=== PATIENT | female | born 1975 | race Caucasian/White ===

== ENCOUNTER → 2018-07-16 | Outpatient (CLI) | payer OTHER ==
[2018-07-16 13:10] LABS: BASO % 0.6 % (0.0-1.0); EOS # 0.1 10^3/uL (0.0-0.50); EOS % 1.9 % (0.0-3.0); HEMATOCRIT 39.6 % (36.0-47.0); IMMATURE GRANULOCYTE % 0.3 % (0-3.0); LYMPH # 1.9 10^3/uL (1.5-4.5); MEAN CORPUSCULAR HEMOGLOBIN 30.4 pg (27.0-33.0); MEAN CORPUSCULAR HGB CONC 32.8 g/dl (32.0-36.5); MEAN CORPUSCULAR VOLUME 92.5 fl (80.0-96.0); MONO # 0.6 10^3/uL (0.0-0.8); MONO % 8.1 % (0.0-5.0); NEUTROPHILS # 4.1 10^3/uL (1.8-7.7); NEUTROPHILS % 61.1 % (36.0-66.0); PLATELET COUNT, AUTOMATED 218 10^3/uL (150-450); RED BLOOD COUNT 4.28 10^6/uL (4.00-5.40); RED CELL DISTRIBUTION WIDTH 12.7 % (11.5-14.5); WHITE BLOOD COUNT 6.8 10^3/uL (4.0-10.0)
[2018-07-16 15:27] LABS: FREE T4 0.96 NG/DL (0.76-1.46)
[2018-07-17 15:01] LABS: PROLACTIN 18.9 NG/ML
== END ==
LOC: M WUC 10:27
DX: N92.1 Excessive and frequent menstruation with irregular cycle (principal)
CPT/HCPCS: 84146

== ENCOUNTER 2018-08-27 10:02 | Day surgery (SDC) | payer OTHER ==
[~2018-08-27 10:02] MED LIST: LR 1,000 ML IV
[2018-08-27] MEDS ORDERED: fentaNYL 100 MCG/2 ML INJECTION (J3010) As Ordered (12:05)
[2018-08-27] MEDS ORDERED: dexameTHASONE 4 MG/ML 1ML VIAL (J1100) As Ordered (12:05)
[2018-08-27] MEDS ORDERED: PROPOFOL 200 MG/20 ML VIAL As Ordered (12:06)
[2018-08-27] MEDS ORDERED: LIDOCAINE 2% INJ 100 MG/5 ML SDV (FOR ANES.) As Ordered (12:06)
[2018-08-27] MEDS ORDERED: KETOROLAC 60 MG/2 ML VIAL (J1885) As Ordered (12:06)
[2018-08-27] MEDS ORDERED: ONDANSETRON 4MG/2ML VIAL (J2405) As Ordered (12:06)
[2018-08-27] MEDS ORDERED: MIDAZOLAM INJ 2 MG/2 ML VIAL (J2250) As Ordered (12:06)
[2018-08-27] MEDS ORDERED: METOCLOPRAMIDE INJ 10MG/2ML VIAL (J2765) As Ordered (12:06)
[2018-08-27] MEDS ORDERED: DESFLURANE 240 ML INHALANT As Ordered (12:22)
[2018-08-27] MEDS ORDERED: ONDANSETRON 4MG/2ML VIAL (J2405) IV (13:00)
[2018-08-27] MEDS ORDERED: IBUPROFEN 600 MG TAB PO (13:00)
[2018-08-27] MEDS ORDERED: fentaNYL 100 MCG/2 ML INJECTION (J3010) IV (13:00)
[2018-08-27] MEDS ORDERED: MEPERIDINE INJ 25 MG/ML VIAL (J2175) IV (13:00)
[2018-08-27] MEDS ORDERED: NORCO, ANEXSIA 5/325MG TABLET (HYDROcodone/ACETAMINOPHEN) PO (13:00)
[2018-08-27] MEDS ORDERED: KETOROLAC 30 MG/ML VIAL (J1885) IV (13:00)
[2018-08-27] MEDS ORDERED: PERCOCET 5MG/325MG TAB PO (13:00)
[2018-08-27] MEDS ORDERED: LR 1,000 ML IV ×2 (13:00)
== END 2018-08-27 14:00 | disposition home or self-care (01) ==
LOC: M SDC 10:02
DX: N93.9 Abnormal uterine and vaginal bleeding, unspecified (principal); R10.2 Pelvic and perineal pain; G43.909 Migraine, unspecified, not intractable, without status migrainosus; Z98.51 Tubal ligation status
CPT/HCPCS: 58563

== ENCOUNTER → 2021-03-30 | Outpatient (REF) | payer OTHER ==
[~2021-03-30] MED LIST changes: -LR 1,000 ML IV; +MULTCAP PO
== END ==
LOC: M LAB REF 17:23
PROVIDERS: ATTEND Dermatology
DX: R21 Rash and other nonspecific skin eruption (principal)

== ENCOUNTER → 2021-03-30 | Outpatient (CLI) | payer OTHER | LOC: M LAB 10:46 | PROVIDERS: ATTEND Dermatology | DX: R21 Rash and other nonspecific skin eruption (principal) ==

== ENCOUNTER → 2021-07-12 | Outpatient (REF) | payer OTHER ==
[~2021-07-12] MED LIST changes: +[UNRECOGNIZED DRUG - OTHER] PO
[2021-07-12 17:16] LABS: HEMATOCRIT 40.2 % (36.0-47.0); HEMOGLOBIN 12.7 g/dl (12.0-15.5); MEAN CORPUSCULAR HEMOGLOBIN 30.3 pg (27.0-33.0); MEAN CORPUSCULAR HGB CONC 31.6 g/dl (32.0-36.5); MEAN CORPUSCULAR VOLUME 95.9 fl (80.0-96.0); PLATELET COUNT, AUTOMATED 227 10^3/uL (150-450); RED BLOOD COUNT 4.19 10^6/uL (4.00-5.40); WHITE BLOOD COUNT 5.8 10^3/uL (4.0-10.0)
[2021-07-12 17:26] LABS: ALBUMIN 3.8 GM/DL (3.2-5.2); ALT/SGPT 23 U/L (12-78); BILIRUBIN,TOTAL 0.3 MG/DL (0.2-1.0); BLOOD UREA NITROGEN 14 MG/DL (7-18); CALCIUM LEVEL 8.7 MG/DL (8.5-10.1); CARBON DIOXIDE LEVEL 27 MEQ/L (21-32); CHLORIDE LEVEL 108 MEQ/L (98-107); CREATININE FOR GFR 0.85 MG/DL (0.55-1.30); FREE T4 0.94 NG/DL (0.76-1.46); GLOMERULAR FILTRATION RATE > 60.0 (>58); GLUCOSE, FASTING 101 MG/DL (70-100); POTASSIUM SERUM 4.6 MEQ/L (3.5-5.1); SODIUM LEVEL 139 MEQ/L (136-145); TOTAL PROTEIN 6.8 GM/DL (6.4-8.2)
[2021-07-18 19:06] LABS: G6PD2 4.31 x10E6/uL (3.77-5.28)
== END ==
LOC: M LABDRAWC 16:26
PROVIDERS: ATTEND Dermatology
DX: L13.0 Dermatitis herpetiformis (principal)

== ENCOUNTER → 2021-09-03 | Outpatient (CLI) | payer OTHER | LOC: M LABSMTC 11:27 | PROVIDERS: ATTEND Anesthesiology | DX: Z11.52 Encounter for screening for COVID-19 (principal); Z20.822 Contact with and (suspected) exposure to COVID-19 ==

== ENCOUNTER 2021-09-07 10:56 | Day surgery (SDC) | payer OTHER ==
[~2021-09-07] VITALS: Ht 177.8 cm; Wt 87.1 kg
[~2021-09-07 10:56] MED LIST changes: +LIDOCAINE 2% 100MG/5ML SDV (FOR ANES.) As Ordered ONE; +NS 1,000 ML IV ONE; +fentaNYL 100 MCG/2 ML INJECTION (J3010) As Ordered ONE; +propofoL 500 MG/50 ML VIAL As Ordered ONE
--- OUTSIDE RECORDS SUMMARY | 2021-09-07 11:00 | CCD | Continuity of Care Document ---
Author Jaycee Delatorre Organization Unknown Address [address], [address] [place] [address] Phone [phone] Care Team Providers Care Nurses Director Name Role Phone Souleymane Purclel [phone] Problems Description No Information Available Social History Type Date Description Comments Sex Unknown ETOH Use 1/d Tobacco Use Start: Unknown Non Smoker Allergies, Adverse Reactions, Alerts Description No Known Drug Allergies Medications Active Medications SIG Qnty Indications Ordering Provide r Date Clenpiq 10-3.5-12mg-GM -GM/160ML S olution follow pre-procedure instructions. start day before procedure. (if not covered by insurance please fill gavilyte script). 320ml L13.0 Chencho Vásquez M.D. 08/01/2021 Gavilyte-N With Flavor Pack 420gm Solution Rec drink the liquid as per the pre-procedur e instructions. ( fill this script only if clenpiq is not covered by insurance). 4000ml L13.0 Chencho Vásquez M.D. 08/01/[address] take 4 tablets together as per bowel preparation instructions. 4tabs L13.0 Chencho Vásquez M.D. 08/01/2021 Women's Mul Vit W/Iron qd Unknown Vitex Louis 4tabs qd Unknown Betamethasone Dipropionate 0.05% O intment Unknown Immunizations Description No Information Available Vital Signs Date Vital Result Comment 08/01/2021 11:44am BP Systolic 132 mmHg BP Diastolic 76 mmHg Height 69 inches 5'9" Weight 192.00 lb BMI (Body Mass Index) 28.4 kg/m2 [place] Body Weight 145 lb Weight 87.091 kg BSA (Body Surface Area) 2.03 m2 Results Description No Information Available Procedures Description No Information Available Medical Devices Description No Information Available Encounters Description No Information Available Assessments Date Code Description Provider 08/01/2021 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 08/01/2021 K62.5 Hemorrhage of anus and rectum Parvez Vásquez M.D. 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 * Recommendations:* -- Educated patient on prior test results and all possible differential diagnoses. All questions answered. -- In view of clinical symptoms and dietary intolerance, patient is educated to continue avoidance of gluten for now ( eventhough the antibody testing was negative). -- Will schedule for diagnostic EGD and Screening colonoscopy. The procedures, indications, risks (bleeding, perforation, infection, hypotension, respiratory depression, allergy, need for endotracheal intubation, surgery, colostomy, cardiac arrest, even ), benefits, limitations (e.g., missing a lesion), and all other alternatives (including no intervention) were explained to the patient who understood and agreed for the procedures. -- Further management based on the above. -- Return to GI clinic 2 weeks post procedures. -- Follow up with PMD for routine medical care and other age appropriate health maintenance.. Functional Status Description No Information Available Mental Status Description No Information Available Referrals Refer to Reason for Referral Status Appt Date Chencho Vásquez M.D. COLO SCREEN/CELIAC CONSULT Schedule d 08/01/2021 [facility] [address], [address] [place] [address] [phone]
--- OUTSIDE RECORDS SUMMARY | 2021-09-07 11:00 | CCD | Continuity of Care Document ---
Author Author Jaycee OYUNG Organization Unknown Address [address] [place] [address] Phone [phone] Care Team Providers Care Car Unloader Helper Name Role Phone Sierra Russo AUTM [phone] Problems Active Problems Provider Date Hemorrhoids without complication Alexia Rogel WHNP Onset: 07/15/2012 Social History Type Date Description Comments Sex Unknown Tobacco Use Start: Unknown Never Smoked Cigarettes ETOH Use Occasionally consumes alcohol Recreational Drug Use Denies Drug Use Tobacco Use Start: Unknown Patient has never smoked Smoking Status Reviewed: 07/28/20 Patient has never smoked Seat Belt/Car Seat always uses seat belt Allergies and adverse reactions Active Allergies Criticality Reaction | Severity Comments Date NKDA Unable to assess criticality 06/13/2006 Gluten Unable to assess criticality 07/28/2020 Inactive Allergies shrimp Unable to assess criticality 06/20/2008 Medications Active Medications SIG Qnty Indications Ordering Provide r Date Ibuprofen 600mg Tablets take one tablet by mouth every 6 hours as needed for pain 60tabs Radha Young MD 08/26/2018 Multivitamins Caplets 1 PO q d 100caps Lesa Wilson, ZACHERY, CNM. 08/10/2010 Probiotic Daily Capsules Unknown Vitex Louis Unknown Immunizations Description No Information Available Vital Signs Date Vital Result Comment 08/07/2021 7:39am BP Systolic 148 mmHg BP Diastolic 98 mmHg Height 69.5 inches 5'9.50" Weight 192.00 lb BMI (Body Mass Index) 27.9 kg/m2 BSA (Body Surface Area) 2.04 m2 07/28/2020 9:09am BP Systolic 118 mmHg BP Diastolic 78 mmHg Height 69.50 inches 5'9.50" Weight 190.00 lb BMI (Body Mass Index) 27.7 kg/m2 BSA (Body Surface Area) 2.03 m2 Results Description No Information Available Procedures Description No Information Available Medical Devices Description No Information Available Encounters Description No Information Available Assessments Description No Information Available Plan of Treatment Future Appointment(s):* 07/26/2022 9:45 am - 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
--- OUTSIDE RECORDS SUMMARY | 2021-09-07 11:00 | CCD | Continuity of Care Document ---
Author Author Jaycee YOUNG Organization Unknown Address [address] [place] [address] Phone [phone] Care Team Providers Care Medical Research Associate Name Role Phone Sierra Russo AUTM [phone] Problems Active Problems Provider Date Hemorrhoids without complication Alexia Rogel WHNP Onset: 07/15/2012 Social History Type Date Description Comments Sex Unknown Tobacco Use Start: Unknown Never Smoked Cigarettes ETOH Use Occasionally consumes alcohol Recreational Drug Use Denies Drug Use Tobacco Use Start: Unknown Patient has never smoked Smoking Status Reviewed: 08/07/21 Patient has never smoked Seat Belt/Car Seat [...] m2 Results Description No Information Available Procedures Date Code Description Status 08/07/2021 67073 Preventive Visit Est 40-64 Yrs C ompleted Medical Devices Description No Information Available Encounters Type Date Location Provider Dx Diagnosis Office Visit 08/07/2021 9:45a [facility]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 Radha Young MD Z0 1.419 Encntr for director of business operations exam (general) (routine) w/o abn findings Z12.4 Encounter for screening for malignant neoplasm of cervix Z12.39 Encounter for oth screening for malignant neoplasm of breast Assessments Date Code Description Provider 08/07/2021 Z01.419 Encounter for gyneco logical examination (general) (routine) without abnormal findings Radha Young MD 08/07/2021 Z12.4 Encounter for screening for cinda gnant neoplasm of cervix Radha Young MD 08/07/2021 Z12.39 Encounter for other screening for malignant neoplasm of breast Radha Young MD Plan of Treatment Future Appointment(s):* 07/26/2022 9:45 am - 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
--- OUTSIDE RECORDS SUMMARY | 2021-09-07 11:00 | CCD ---
Author Author [facility] Organization [facility] Address Unknown Phone Unavailable Care Team Providers Care Oiler Bander Name Role Phone Lisandra Okeefe Unavailable PROBLEMS Type Condition ICD9-CM Code XOB54-XL Code Onset Dates Condition S tatus W/U Status Risk SNOMED Code Notes Problem Keratosis pilaris L85.8 Active confirmed 51 52762 Problem Melanocytic nevi of right lower limb, including hip D22.71 Active confirmed 789394925 Problem Melanocytic nevi of left lower limb, including hip D22.72 Active confirmed 719738569 Problem Melanocytic nevi of right upper limb, including shoulder D22.61 Active confirmed 471745580 Problem Melanocytic nevi of left upper limb, including shoulder D22.62 Active confirmed 734312077 Problem Acrochordon L91.8 Active confirmed 09249877 2 Problem Skin cancer screening Z12.83 Active confirmed 028307891 Problem Melanocytic nevus of skin D22.9 Active confirmed 209115489 Problem Lentigines L81.4 Active confirmed 194317433 Problem Melanocytic nevi of face D22.30 Active confirmed 488784674 Problem 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 Active confirmed 356243882 Problem Melanocytic nevi of trunk D22.5 Active confirmed 115908477 Problem Dermal nevus D23.9 Active confirmed 9667275 06 Problem Sanabria angioma D18.01 Active confirmed 58218 01 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 ; Lentigines L81.4 ; Melanocytic nevus of skin D22.9 ; Plantar wart of right foot B07.0 and Dermal nevus D23.9 IMMUNIZATIONS No Information SOCIAL HISTORY Sex Assigned At : Social History Observation Description Sex Assigned At Unknown Language: Question Answer Notes Languages spoken: Mauritian REASON FOR REFERRAL No Information VITAL SIGNS Weight 195.6 lbs Aug, Weight-kg 88.72 kg Aug, Height 69.5 in Aug, BMI 28.47 kg/m2 Aug, Blood pressure systolic 130 mm Hg Aug, Blood pressure diastolic 82 mm Hg Aug, MEDICATIONS Medication SIG (Take, Route, Frequency, Duration) Notes Start Da te End Date Status Probiotic - Orally Active Multi Vitamin/Minerals as directed Orally DAILY Active Betamethasone Dipropionate Aug 0.05 % 1 application Ex ternally to entire lower legs bid for 30 Days prn March, Active PROCEDURES No Information RESULTS No Results REASON FOR VISIT 1 YEAR FBSE MEDICAL (GENERAL) HISTORY Type Description Date Medical History External hemorrhoids without mention of complication Medical History Cervical root lesions, not elsewhere cla ssified Medical History Other and unspecified hyperlipidemia Surgical History NO SURGERIES Surgical History lumpectomy 2014 Surgical History tubal ligation 2016 Surgical History ablasion 2018 Hospitalization History childbirth Goals Section No Information Health Concerns No Information MEDICAL EQUIPMENT No Information MENTAL STATUS No Information FUNCTIONAL STATUS No Information ASSESSMENTS Encounter Date Diagnosis Assessment Notes Treatment Notes Treatm ent Clinical Notes Aug, Dermatitis herpetiformis (ICD-10 - L13.0) -continue strict gluten free diet, baseline labs drawn if pt opts to start dapsone, Patient is advised of most serious and most common side effects of Dapsone therapy. He is advised that it can cause shortness of breath, blue lips, anemia, lowering of white blood counts making infection easier to catch, weakness or numbness, rashes and fever and chills,upset stomach, liver problems and sun sensitivity. We will need to watch for these things by having weekly blood tests for one month, then biweekly blood tests for three months. If he has any symptoms as described or any concerns related to his medication, he is to call me STEPHEN Aug, Skin cancer screening (ICD-10 - Z12.83) Patient counseled on signs and symptoms of skin cancer including ABCDE's of Melanoma. Patient counseled to wear sunscreen or use sun protective clothing when outdoors. Avoid peak hours of sun between 10-2. Patient instructed to call with any new or changing lesions. Aug, Sanabria angioma (ICD-10 - D18.01) Benign, reassurance Aug, Angiofibroma (ICD-10 - D36.9) Benign, reassurance Aug, Lentigines (ICD-10 - L81.4) Benign Lesion Counseling. The patient was extensively counseled regarding the benign nature of the lesion but that skin cancer may arise in this area just as it would anywhere on their skin. For that reason, return to clinic was recommended for any acute changes, itching, burning, or bleeding. The patient was educated that benign lesions are not a covered insurance benefit and treatment would be elective and cosmetic. They expressed understanding. Aug, Melanocytic nevus of skin (ICD-10 - D22.9) Reminded to avoid the sun and tanning, use sun screens regularly when spending time [id number], and perform self-examinations monthly to watch for any change in the appearance of your moles. If you notice any changes in color, appearance, symptoms of moles, you should contact the office for an appointment to have change evaluated as soon as possible. Aug, Plantar wart of right foot (ICD-10 - B07.0) continue at home therapy with Dr Main's tx, recommend duct tape Aug, Dermal nevus (ICD-10 - D23.9) Reminded to avoid the sun and tanning, use sun screens regularly when spending time [id number], and perform self-examinations monthly to watch for any change in the appearance of your moles. If you notice any changes in color, appearance, symptoms of moles, you should contact the office for an appointment to have change evaluated as soon as possible. PLAN OF TREATMENT Treatment Notes Assessment Notes Clinical Notes Dermatitis herpetiformis -continue stric t gluten free diet, baseline labs drawn if pt opts to start dapsone, Patient is advised of most serious and most common side effects of Dapsone therapy. He is advised that it can cause sh ortness of breath, blue lips, anemia, lowering of white blood counts making infection easier to catch, weakness or numbness, rashes and fever and chills,upset stomach, liver problems and sun sensitivity. We will need to watch for these things by having weekly blood tests for one month, then biweekly blood tests for three months. If he has any symptoms as described or any concerns related to his medication, he is to call me [facility] Skin cancer screening Patient counseled on signs and symptoms of skin cancer including ABCDE's of Melanoma. Patient counseled to wear sunscreen or use sun protective clothing when outdoors. Avoid peak hours of sun between 10-2. Patient instructed to call with any new or changing lesions. Sanabria angioma Benign, reassurance Angiofibroma Benign, reassurance Lentigines Benign Lesion Counse robb. The patient was extensively counseled regarding the benign nature of the lesion but that skin cancer may arise in this area just as it would anywhere on their skin. For that reason, return to clinic was recommended for any acute changes, itching, burning, or bleeding. The patient was educated that benign lesions are not a covered insurance benefit and treatment would be elective and cosmetic. They expressed understanding. Melanocytic nevus of skin Reminded to av oid the sun and tanning, use sun screens regularly when spending time [id number], and perform self-examinations monthly to watch for any change in the appearance of your moles. If you notice any changes in color, appearance, symptoms of moles, you should contact the office for an appointment to have change evaluated as soon as possible. Plantar wart of right foot continue at h ome therapy with Dr Main's tx, recommend duct tape Dermal nevus Reminded to avoid th e sun and tanning, use sun screens regularly when spending time [id number], and perform self-examinations monthly to watch for any change in the appearance of your moles. If you notice any changes in color, appearance, symptoms of moles, you should contact the office for an appointment to have change evaluated as soon as possible. Next Appt Details 1 Year Reason:FBSE Provider Name:Lisandra Okeefe, 09:00:00 AM, [address], , [place], [place], [facility], Follow Up:1 YearFBSE Insurance Providers Payer Name Payer Address Payer Phone Insured Name Patient Relati onship to Insured Coverage Start Date Coverage End Date [facility] [address] [address] [facility] [id number] [phone] Rod Sumner
--- OUTSIDE RECORDS SUMMARY | 2021-09-07 11:00 | CCD ---
Author Author [facility] Organization [facility] Address Unknown Phone Unavailable Care Team Providers Care Android Developer Name Role Phone Souleymane Purcell Unavailable PROBLEMS Type Condition ICD9-CM Code LIE25-UU Code Onset Dates Condition S tatus W/U Status Risk SNOMED Code Notes Problem Keratosis pilaris L85.8 Active confirmed 51 68599 Problem Melanocytic nevi of left lower limb, including hip D22.72 Active confirmed 757033887 Problem Melanocytic nevi of right lower limb, including hip D22.71 Active confirmed 198528492 Problem Melanocytic nevi of face D22.30 Active confirmed 697952816 Problem 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 Active confirmed 443986665 Problem Melanocytic nevi of left upper limb, including shoulder D22.62 Active confirmed 441684957 Problem Melanocytic nevi of right upper limb, including shoulder D22.61 Active confirmed 698619991 Problem Melanocytic nevi of trunk D22.5 Active confirmed 673268002 Problem Acrochordon L91.8 Active confirmed 89006270 2 ALLERGIES Allergen (clinical drug ingredient) Drug/Non Drug Allergy do cumented on EMR Reaction Allergy Type Onset Date Status ethyl acrylate-pet0.1% Rash Non Drug Allergy Active Propolis- pet-10% Rash Non Drug Allergy A ctive ENCOUNTERS from 1976 to 2021-07-10 Encounter Location Date Provider Diagnosis [facility] D[facility]atology [address] [phone] [place] [address] Jun, Souleymane Purcell Dermatitis herpetiformis L13 .0 IMMUNIZATIONS No Information SOCIAL HISTORY Sex Assigned At : Social History Observation Description Sex Assigned At Unknown Language: Question Answer Notes Languages spoken: Turkmen REASON FOR REFERRAL No Information VITAL SIGNS No information MEDICATIONS Medication SIG (Take, Route, Frequency, Duration) Notes Start Da te End Date Status Betamethasone Dipropionate Jun 0.05 % 1 application Ex ternally to entire lower legs bid for 30 Days March, Active Multi Vitamin/Minerals as directed Orally DAILY Active Probiotic - Orally Active PROCEDURES No Information RESULTS No Results REASON FOR VISIT Again MEDICAL (GENERAL) HISTORY Type Description Date Medical History External hemorrhoids without mention of complication Medical History Cervical root lesions, not elsewhere cla ssified Medical History Other and unspecified hyperlipidemia Surgical History NO SURGERIES Surgical History lumpectomy 2013 Surgical History tubal ligation 2016 Surgical History ablasion 2018 Hospitalization History childbirth Goals Section No Information Health Concerns No Information MEDICAL EQUIPMENT No Information MENTAL STATUS No Information FUNCTIONAL STATUS No Information ASSESSMENTS Encounter Date Diagnosis Assessment Notes Treatment Notes Treatm ent Clinical Notes Jun, Dermatitis herpetiformis (ICD-10 - L13.0) PLAN OF TREATMENT Next Appt Details Provider Name:Lisandra Okeefe, 08:30:00 AM, [address] [place] [address], , [place], [place], [facility], Insurance Providers Payer Name Payer Address Payer Phone Insured Name Patient Relati onship to Insured Coverage Start Date Coverage End Date [facility] [address] [facility] [phone] Rod Sumner
--- OUTSIDE RECORDS SUMMARY | 2021-09-07 11:00 | CCD | Continuity of Care Document ---
Author Jaycee Delatorre Organization Unknown Address [address], [address] [place] [address] Phone [phone] Care Team Providers Care Manager Service Desk Name Role Phone Souleymane Purcell [phone] Problems Description No Information Available Social History [...] lb BMI (Body Mass Index) 28.4 kg/m2 [place] Body Weight 145 lb Weight 87.091 kg BSA (Body Surface Area) 2.03 m2 Results Description No Information Available Procedures Date Code Description Status 08/01/2021 60195 Office/Outpatient New Moderate M DM 45-59 Minutes Completed Medical Devices Description No Information Available Encounters Type Date Location Provider Dx Diagnosis Office Visit 08/01/2021 10:50a [facility] Gastroenter[facility] Pra [facility] Chencho Vásquez M.D. 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 08/01/2021 K62.5 Hemorrhage of anus and rectum Parvez Vásquez M.D. Plan of Treatment No Information Available Functional Status Description No Information Available Mental Status Description No Information Available Referrals Refer to Dr Reason for Referral Status Appt Date Chencho Vásquez M.D. COLO SCREEN/CELIAC CONSULT Schedule d 08/01/2021 [facility]GI [address], [address] [place] [address] [phone]
--- OUTSIDE RECORDS SUMMARY | 2021-09-07 11:00 | CCD ---
Author Author [facility] Organization [facility] Address Unknown Phone Unavailable Care Team Providers Care Surgery Aide Name Role Phone Josephine YOUNG MD Unavailable Unavailable YOUNG, L TOAN BLACKMAN Unavailable Unavailable YOUNG, L TOAN BLACKMAN Unavailable Unavailable YOUNG, L TOAN BLACKMAN Unavailable Unavailable YOUNG, L TOAN BLACKMAN Unavailable Unavailable YOUNG, L TOAN BLACKMAN Unavailable Unavailable YOUNG, L TOAN BLACKMAN Unavailable Unavailable YOUNG, L TOAN BLACKMAN Unavailable Unavailable YOUNG, L TOAN BLACKMAN Unavailable Unavailable YOUNG, L TOAN BLACKMAN Unavailable Unavailable YOUNG, L TOAN BLACKMAN Unavailable Unavailable YOUNG, L TOAN BLACKMAN Unavailable Unavailable YOUNG, L TOAN BLACKMAN Unavailable Unavailable YONUG, L TOAN BLACKMAN Unavailable Unavailable YOUNG, L TOAN BLACKMAN Unavailable Unavailable YOUNG, L TOAN BLACKMAN Unavailable Unavailable YOUNG, L TOAN BLACKMAN Unavailable Unavailable YOUNG, L TOAN BLACKMAN Unavailable Unavailable YOUNG, L TOAN BLACKMAN Unavailable Unavailable YOUNG, L TOAN BLACKMAN Unavailable Unavailable YOUNG, L TOAN BLACKMAN Unavailable Unavailable YOUNG, L TOAN BLACKMAN Unavailable Unavailable YOUNG, L TOAN BLACKMAN Unavailable Unavailable YOUNG, L TOAN BLACKMAN Unavailable Unavailable YOUNG, L TOAN BLACKMAN Unavailable Unavailable YOUNG, L TOAN BLACKMAN Unavailable Unavailable YOUNG, L TOAN BLACKMAN Unavailable Unavailable YOUNG, L TOAN BLACKMAN Unavailable Unavailable YOUNG, L TOAN BLACKMAN Unavailable Unavailable YOUNG, L TOAN BLACKMAN Unavailable Unavailable YOUNG, L TOAN BLACKMAN Unavailable Unavailable YOUNG, L TOAN BLACKMAN Unavailable Unavailable YOUNG, L TOAN BLACKMAN Unavailable Unavailable Josephine YOUNG MD Unavailable Unavailable Josephine YOUNG MD Unavailable Unavailable Josephine YOUNG MD Unavailable Unavailable Josephine YOUNG MD Unavailable Unavailable Josephine YOUNG MD Unavailable Unavailable Josephine YOUNG MD Unavailable Unavailable Josephine YOUNG MD Unavailable Unavailable Josephine YOUNG MD Unavailable Unavailable Josephine YOUNG MD Unavailable Unavailable Josephine YOUNG MD Unavailable Unavailable Josephine YOUNG MD Unavailable Unavailable Josephine YOUNG MD Unavailable Unavailable Shashi FRANCO MD Unavailable Unavailable Shashi FRANCO MD Unavailable Unavailable Shashi FRANCO MD Unavailable Unavailable Shashi FRANCO MD Unavailable Unavailable Shashi FRANCO MD Unavailable Unavailable Shashi FRANCO MD Unavailable Unavailable Shashi FRANCO MD Unavailable Unavailable Shashi FRANCO MD Unavailable Unavailable Shashi FRANCO MD Unavailable Unavailable Shashi FRANCO MD Unavailable Unavailable Shashi FRANCO MD Unavailable Unavailable Shashi FRANCO MD Unavailable Unavailable Shashi FRANCO MD Unavailable Unavailable Shashi FRANCO MD Unavailable Unavailable Shashi FRANCO MD Unavailable Unavailable Shashi FRANCO MD Unavailable Unavailable Shashi FRANCO MD Unavailable Unavailable Shashi FRANCO MD Unavailable Unavailable Shashi FRANCO MD Unavailable Unavailable Shashi FRANCO MD Unavailable Unavailable Shashi FRANCO MD Unavailable Unavailable Shashi FRANCO MD Unavailable Unavailable Shashi FRANCO MD Unavailable Unavailable Shashi FRANCO MD Unavailable Unavailable Shashi FRANCO MD Unavailable Unavailable Shashi FRANCO MD Unavailable Unavailable Shashi FRANCO MD Unavailable Unavailable Shashi FRANCO MD Unavailable Unavailable Shashi FRANCO MD Unavailable Unavailable Shashi FRANCO MD Unavailable Unavailable Shashi FRANCO MD Unavailable Unavailable Shashi FRANCO MD Unavailable Unavailable Shashi FRANCO MD Unavailable Unavailable Re-disclosure Warning The records that you are about to access may contain information from federally-assisted alcohol or drug abuse programs. If such information is present, then the following federally mandated warning applies: This information has been disclosed to you from records protected by federal confidentiality rules (42 CFR part 2). The federal rules prohibit you from making any further disclosure of this information unless further disclosure is expressly permitted by the written consent of the person to whom it pertains or as otherwise permitted by 42 CFR part 2. A general authorization for the release of medical or other information is NOT sufficient for this purpose. The Federal rules restrict any use of the information to criminally investigate or prosecute any alcohol or drug abuse patient.The records that you are about to access may contain highly sensitive health information, the redisclosure of which is protected by Article 27-F of the [facility] Public Health law. If you continue you may have access to information: Regarding HIV / AIDS; Provided by facilities licensed or operated by the [facility] Office of Mental Health; or Provided by the [facility] Office for People With Developmental Disabilities. If such information is present, then the following [facility] mandated warning applies: This information has been disclosed to you from confidential records which are protected by state law. State law prohibits you from making any further disclosure of this information without the specific written consent of the person to whom it pertains, or as otherwise permitted by law. Any unauthorized further disclosure in violation of state law may result in a fine or alf sentence or both. A general authorization for the release of medical or other information is NOT sufficient authorization for further disc losure. 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) Outpatient Attender: LOUISE Crowell/Rashard/Wilbert saleem/Reinnany 08/01/2021 10:50:00 AM EDT MEDENT ([facility]) [place] [address] [facility] [address] 07/07/2021 12:00:00 AM EDT eCW1 ([facility]) [place] [address] [facility] [address] 05/01/2021 12:00:00 AM EDT eCW1 ([facility]) [place] [address] [facility] [address] 03/30/2021 12:00:00 AM EDT eCW1 ([facility]) [place] [address] [facility] [address] 03/29/2021 12:00:00 AM EDT eCW1 ([facility]) [place] [address] [facility] [address] 09/11/2020 12:00:00 AM EST eCW1 ([facility]) [place] [address] [facility] [address] 09/07/2020 12:00:00 AM EDT eCW1 ([facility]) [place] [address] [facility] [address] 09/05/2020 12:00:00 AM EDT eCW1 ([facility]) [place] [address] [facility] [address] 08/17/2020 12:00:00 AM EDT eCW1 ([facility]) Outpatient Attender: TOAN Duron Woman steam pan sponger 09:45:00 AM EDT LACEY ([facility] [employer] WO[employer] DES[employer]ER) Immunizations Vaccine Date Status Description Data Source(s) COVID-19 VACCINE Moderna 03/05/2021 12:00:00 AM EDT completed [employer] Vaccine Series Complete: YESThis Data wa s Submitted to [facility] Via [employer]. COVID-19 VACC,MRNA(MODERNA)/PF 03/05/2021 12:00:00 AM EDT completed [facility] COVID-19 VACCINE, MRNA-1273, LNP-S (MODERNA)/PF 02/08/2021 1 2:00:00 AM EDT completed [facility] COVID-19 VACCINE Moderna 02/08/2021 12:00:00 AM EDT completed [facility] Vaccine Series Complete: NOThis Data was Submitted to [facility] Via [employer]. Medications Medication Brand Name Start Date Product Form Dose Route Admi nistrative Instructions Pharmacy Instructions Status Indications Reaction Description Data Source(s) 5 mg 08/01/2021 12:00:00 AM EDT tablet,delayed release (DR/EC) 4 4 BY MOUTH ONCE PER BOWEL INSTRUCTIONS 4 BY MOUTH ONCE PER BOWEL INSTRUCTIONS SOLD: 08/07/2021 [facility] Bisacodyl 5 MG Delayed Release Oral Tablet [Dulcolax] Dulcol ax 08/01/2021 12:00:00 AM EDT active M EDENT ([facility], ) POLYETHYLENE GLYCOL 3350 105 MG/ML / Pot assium Chloride 0.16073 MEQ/ML / Sodium Bicarbonate 0.017 MEQ/ML / Sodium Chloride 0.0479 MEQ/ML Oral Solution [GaviLyte-N] Gavilyte-N With Flavor Pack 08/01/2021 12:00:00 AM EDT active MEDENT ([facility], ) Clenpiq Clenpiq 08/01/2021 12:00:00 AM EDT active MEDENT ([facility], ) Citric Acid 75 MG/ML / Magnesium Oxide 2 1.9 MG/ML / picosulfate sodium 0.0625 MG/ML Oral Solution [Clenpiq] 10 mg-3.5 gram -12 gram/160 mL SOD PICOSULF/MAG OX/CITRIC AC 08/01/2021 12:00:00 AM EDT solution 320 DIRECTE D DIRECTED SOLD: 08/07/2021 [facility] Betamethasone 0.0005 MG/MG Augmented Top ical Ointment Betamethasone Dipropionate Aug 0.05 % Betamethasone Dipropionate Aug 0.05 % 03/30/2021 12:00:00 AM EDT 1.0 {application} active Betamethasone Dipropionate Aug 0.05 % eCW1 ([facility]) Augmented Betamethasone 0.0005 MG/MG Topical Ointment 0.05 % BETAMETHASONE/PROPYLENE GLYC 03/30/2021 12:00:00 AM EDT ointment 45 APPLY TO ENTIRE LOWER LEGS TWO TIMES A DAY DIRECTED APPLY TO ENTIRE LOWER LEGS TWO TIMES A DAY DIRECTED SOLD: 07/06/2021 [facility] Betamethasone 0.0005 MG/MG Augmented Top ical Ointment Betamethasone Dipropionate Aug 0.05 % Betamethasone Dipropionate Aug 0.05 % 03/30/2021 12:00:00 AM EDT 1.0 {application} active eCW1 ( [facility]) Betamethasone 0.0005 MG/MG Augmented Top ical Ointment Betamethasone Dipropionate Aug 0.05 % Betamethasone Dipropionate Aug 0.05 % 03/30/2021 12:00:00 AM EDT 1.0 {application} active Betamethasone Dipropionate Aug 0.05 % eCW1 ([facility]) Betamethasone 0.0005 MG/MG Augmented Top ical Ointment Betamethasone Dipropionate Aug 0.05 % Betamethasone Dipropionate Aug 0.05 % 03/30/2021 12:00:00 AM EDT 1.0 {application} active Betamethasone Dipropionate Aug 0.05 % eCW1 ([facility]) Augmented Betamethasone 0.0005 MG/MG Topical Ointment 0.05 % BETAMETHASONE/PROPYLENE GLYC 03/30/2021 12:00:00 AM EDT ointment 45 APPLY TO ENTIRE LOWER LEGS TWO TIMES A DAY DIRECTED APPLY TO ENTIRE LOWER LEGS TWO TIMES A DAY DIRECTED SOLD: 03/30/2021 [facility] Insurance Providers Payer name Policy type / Coverage type Policy ID Covered libertarian ID Covered libertarian's relationship to brito Policy Brito Plan Information POMCO U [id number] Spouse [id number] POMCO [id number] [facility] [id number] [facility] [id number] [facility] [id number] [facility] [id number] [facility] [id number] POMCO U [id number] Spouse [id number] [place] [id number] [facility] Commercial [id number] Family Dependent [id number] [facility] [id number] HU2 [id number] ANSI-Commercial [id number] ANSI-Commercial [id number] [facility] Commercial [id number] Family Dependent [id number] [facility] [id number] [facility] [id number] POMCO -O/P [id number] 18 [id number] Problems, Conditions, and Diagnoses Code Display Name Description Problem Type Effective Dates Data Source(s) B07.0 [id number] Plantar wart of right foot Problem 08/20/2021 12:00:00 AM EDT eCW1 ([facility]) D36.9 [id number] Angiofibroma Problem 08/20/2021 12:00:00 AM EDT eCW1 ([facility]) D18.01 [id number] [place] angioma Problem 08/20/2021 12:00:00 A M EDT eCW1 ([facility]) D23.9 [id number] Dermal nevus Problem 08/20/2021 12:00:00 AM EDT eCW1 ([facility]) L81.4 [id number] Lentigines Problem 08/20/2021 12:00:00 AM ED T eCW1 ([facility]) D22.9 [id number] Melanocytic nevus of skin Problem 08/20/2021 12:00:00 AM EDT eCW1 ([facility]) Z12.83 [id number] Skin cancer screening Problem 08/20/2021 12: 00:00 AM EDT eCW1 ([facility]) L13.0 [id number] Dermatitis herpetiformis Problem 03/30/2021 12:00:00 AM EDT eCW1 ([facility]) Surgeries/Procedures Procedure Description Date Indications Data Source(s) PERIODIC PREVENTIVE MED EST PATIENT 40-64YRS 12:00:00 AM EDT 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) OFFICE OUTPATIENT NEW 45 MINUTES 08/01/2021 12:00:00 A M EDT MEDENT ([facility], ) Med: Derm 1% Lidocaine with Epinephrine Injection Intr adermally to marked areas 03/30/2021 12:00:00 AM EDT eCW1 ([facility]) Results ID Date Data Source Celiac Disease Comprehensive 03/30/2021 12:00:00 AM EDT eCW1 ([facility]) Name Value Range Interpretation Code Description Data Misa rce(s) Supporting Document(s) Gliadin IgA Ab [Units/volume] in Serum by Immunoassay 4 0-19 eCW1 ([facility]) Gliadin IgG Ab [Units/volume] in Serum by Immunoassay 2 0-19 eCW1 ([facility]) Tissue transglutaminase IgA Ab [Units/volume] in Serum <2 0-3 eCW1 ([facility]) Endomysium IgA Ab [Presence] in Serum Negative Negative eCW1 ([facility]) Tissue transglutaminase IgG Ab [Units/volume] in Serum 5 0-5 eCW1 ([facility]) IgA [Mass/volume] in Serum or Plasma 244 [id number] eCW1 ([facility]) ID Date Data Source [id number] 07/28/2020 12:00:00 PM EDT 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 Cervical, Endocervical, ThinPrep Pap (Moisture Meter Reader) CYTOLOGY HX-------- Date of Last Menstrual Period: 07/26/20 Other Information:Previous Normal Pap: 07/22/19 FINAL DIAGNOSIS---- INTERPRETATION: Negative for Intraepithelial Lesion or Malignancy. SPECIMEN ADEQUACY:Satisfactory for evaluation. Endocervical/transformation zone component present. 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) Vital Signs ID Date Data Source UNK Name Value Range Interpretation Code Description Data Source(s) Body weight 195.6 [lb_av] 195.6 [lb_av] eCW1 ([facility]) Body weight 88.72 kg 88.72 kg W1 ([facility]) Body height 69.5 [in_i] 69.5 [in_i] eCW1 ([facility]) Body mass index (BMI) [Ratio] 28.47 kg/m2 28.47 kg/m2 eCW1 ([facility]) Systolic blood pressure 130 mm[Hg] 130 mm[Hg] e CW1 ([facility]) Diastolic blood pressure 82 mm[Hg] 82 mm[Hg] eCW1 ([facility]) Body mass index (BMI) [Ratio] 27.9 kg/m2 27.9 k g/m2 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) Systolic blood pressure 148 mm[Hg] 148 mm[Hg] M EDENT (Oliverio Woman [employer]ED WOOD DESIGNER) Diastolic blood pressure 98 mm[Hg] 98 mm[Hg] 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) Body height 69.5 [in_i] 69.5 [in_i] MEDENT (Vinod queen Woman ENGINEERED WOOD DESIGNER) 5'9.50" Body weight 192.00 [lb_av] 192.00 [lb_av] MEDEN T (Oliverio Woman ENGINEERED WOOD DESIGNER) Body surface area Derived from formula 2.04 m2 2.04 m2 [facility] ([place] [facility] ENGINEERED WOOD DESIGNER) Body height 69 [in_i] 69 [in_i] [facility] ([facility]) 5'9" [place] body weight 145 [lb_av] 145 [lb_av] MEDEN T ([facility]) Body weight 87.091 kg 87.091 kg [facility] ([facility]) Body surface area Derived from formula 2.03 m2 2.03 m2 [facility] ([facility]) Body weight 192.00 [lb_av] 192.00 [lb_av] MEDEN T ([facility]) Body mass index (BMI) [Ratio] 28.4 kg/m2 28.4 k g/m2 [facility] ([facility]) Systolic blood pressure 132 mm[Hg] 132 mm[Hg] [facility] Diastolic blood pressure 76 mm[Hg] 76 mm[Hg] [facility] ([facility]) Body weight 194.6 [lb_av] 194.6 [lb_av] eCW1 ([facility]) Body height 69.5 [in_i] 69.5 [in_i] W1 ([facility]) Body mass index (BMI) [Ratio] 28.32 kg/m2 28.32 kg/m2 eCW1 ([facility]) Systolic blood pressure 128 mm[Hg] 128 mm[Hg] e CW1 ([facility]) Diastolic blood pressure 84 mm[Hg] 84 mm[Hg] eCW1 ([facility]) Body weight 198 [lb_av] 198 [lb_av] eCW1 ([facility]) Body mass index (BMI) [Ratio] 28.82 kg/m2 28.82 kg/m2 eCW1 ([facility]) Systolic blood pressure 121 mm[Hg] 121 mm[Hg] e CW1 ([facility]) Diastolic blood pressure 77 mm[Hg] 77 mm[Hg] eCW1 ([facility]) Body height 69.5 [in_i] 69.5 [in_i] eCW1 ([facility]) Body weight 197 [lb_av] 197 [lb_av] eCW1 ([facility]) Body height 69.5 [in_i] 69.5 [in_i] eCW1 ([facility]) Body mass index (BMI) [Ratio] 28.67 kg/m2 28.67 kg/m2 eCW1 ([facility]) Systolic blood pressure 128 mm[Hg] 128 mm[Hg] e CW1 ([facility]) Diastolic blood pressure 78 mm[Hg] 78 mm[Hg] eCW1 ([facility]) Body weight 199 [lb_av] 199 [lb_av] eCW1 ([facility]) Body height 69.5 [in_i] 69.5 [in_i] eCW1 ([facility]) Body mass index (BMI) [Ratio] 28.96 kg/m2 28.96 kg/m2 eCW1 ([facility]) Body weight 199.0 [lb_av] 199.0 [lb_av] eCW1 ([facility]) Body height 69.5 [in_i] 69.5 [in_i] eCW1 ([facility]) Body mass index (BMI) [Ratio] 28.96 kg/m2 28.96 kg/m2 eCW1 ([facility]) Systolic blood pressure 124 mm[Hg] 124 mm[Hg] e CW1 ([facility]) Diastolic blood pressure 80 mm[Hg] 80 mm[Hg] eCW1 ([facility]) Body weight 193.6 [lb_av] 193.6 [lb_av] eCW1 ([facility]) Body height 69.5 [in_i] 69.5 [in_i] eCW1 ([facility]) Body mass index (BMI) [Ratio] 28.18 kg/m2 28.18 kg/m2 eCW1 ([facility]) Systolic blood pressure 112 mm[Hg] 112 mm[Hg] e CW1 ([facility]) Diastolic blood pressure 72 mm[Hg] 72 mm[Hg] eCW1 ([facility]) Body surface area 2.03 m2 2.03 m2 MEDENT ([facility] [employer] WO[employer] DESIGN[employer]) Diastolic blood pressure 78 mm[Hg] 78 mm[Hg] MEDENT ([facility] [employer]INEERED WOOD DESIGNER) Body height 69.50 [in_i] 69.50 [in_i] MEDENT (W isbret Woman ENGINEERED WOOD DESIGNER) 5'9.50" Body weight 190.00 [lb_av] 190.00 [lb_av] MEDEN T ([facility] [employer]ED WOOD DESIGNER) Systolic blood pressure 118 mm[Hg] 118 mm[Hg] M EDENT ([facility] [employer]ED WOOD DESIGNER) Body surface area Derived from formula 2.03 m2 2.03 m2 MEDENT ([employer] [employer]ED WOOD DESIGNER) Body mass index (BMI) [Ratio] 27.7 kg/m2 27.7 k g/m2 MEDENT ([facility] [employer]ERED WOOD DESIGNER) Patient Treatment Plan of Care Planned Activity Planned Date Details Description Data Source (s) Betamethasone 0.0005 MG/MG Augmented Topical Ointment 03/30/2021 12:00:00 AM EDT eCW1 ([facility])
--- NOTE | 2021-09-07 12:49 | ROOR ---
Patient Name: Jaycee Sumner Procedure Date: 09/07/2021 12:12 PM Date of : 1975 Age: 46 Room: [facility] Gender: Female Note Status: Finalized Procedure: Upper GI endoscopy Indications: Suspected celiac disease Providers: Chencho Vásquez MD Referring MD: Radha Fu MD Requesting Provider: Medicines: Monitored Anesthesia Care Complications: No immediate complications. Procedure: Pre-Anesthesia Assessment: - Prior to the procedure, a History and Physical was performed, and patient medications and allergies were reviewed. The patient is competent. The risks and benefits of the procedure and the sedation options and risks were discussed with the patient. All questions were answered and informed consent was obtained. Patient identification and proposed procedure were verified by the physician, the nurse and the anesthesiologist in the procedure room. Mental Status Examination: alert and oriented. Airway Examination: normal oropharyngeal airway and neck mobility. Respiratory Examination: clear to auscultation. CV Examination: normal. Prophylactic Antibiotics: The patient does not require prophylactic antibiotics. Prior Anticoagulants: The patient has taken no previous anticoagulant or antiplatelet agents. ASA Grade Assessment: II - A patient with mild systemic disease. After reviewing the risks and benefits, the patient was deemed in satisfactory condition to undergo the procedure. The anesthesia plan was to use monitored anesthesia care (MAC). Immediately prior to administration of medications, the patient was re-assessed for adequacy to receive sedatives. The heart rate, respiratory rate, oxygen saturations, blood pressure, adequacy of pulmonary ventilation, and response to care were monitored throughout the procedure. The physical status of the patient was re-assessed after the procedure. The Endoscope was introduced through the mouth, and advanced to the second part of duodenum. The upper GI endoscopy was accomplished without difficulty. The patient tolerated the procedure well. Findings: The examined esophagus was normal. The Z-line was regular and was found at the gastroesophageal junction. Scattered mild inflammation characterized by erythema, friability and granularity was found in the gastric antrum. Biopsies were taken with a cold forceps for histology. Biopsies were taken with a cold forceps for Helicobacter pylori testing. Verification of patient identification for the specimen was done by the physician and nurse using the patient's name, date and medical record number. Estimated blood loss was minimal. The duodenal bulb, second portion of the duodenum and third portion of the duodenum were normal. Biopsies for histology were taken with a cold forceps for evaluation of celiac disease. Impression: - Normal esophagus. - Z-line regular, at the gastroesophageal junction. - Gastritis. Biopsied. - Normal duodenal bulb, second portion of the duodenum and third portion of the duodenum. Biopsied. Recommendation: - Patient has a contact number available for emergencies. The signs and symptoms of potential delayed complications were discussed with the patient. Return to normal activities tomorrow. Written discharge instructions were provided to the patient. - High fiber diet. - Continue present medications. - Await pathology results. - Follow an antireflux regimen. - Telephone GI clinic for pathology results in 2 weeks. - Return to GI clinic if persistent symptoms or new symptoms. - Return to primary care physician. Procedure Code(s): --- Professional --- 05518, Esophagogastroduodenoscopy, flexible, transoral; with biopsy, single or multiple Diagnosis Code(s): --- Professional --- K29.70, Gastritis, unspecified, without bleeding CPT copyright 2019 [employer]. All rights reserved. The codes documented in this report are preliminary and upon electrical appliance servicer review may be revised to meet current compliance requirements. Chencho Vásquez MD Chencho Vásquez MD 09/07/2021 12:49:26 PM Electronically signed by Chencho Vásquez MD Number of Addenda: 0 Note Initiated On: 09/07/2021 12:12 PM Estimated Blood Loss: Estimated blood loss was minimal.
--- NOTE | 2021-09-07 13:07 | ROOR ---
Patient Name: Jaycee Sumner Procedure Date: 09/07/2021 12:13 PM Date of : 1975 Age: 46 Room: [facility] Gender: Female Note Status: Finalized Procedure: Colonoscopy Indications: Screening for colorectal malignant neoplasm Providers: Chencho Vásquez MD Referring MD: Radha Fu MD Requesting Provider: Medicines: Monitored Anesthesia Care Complications: No immediate complications. Procedure: Pre-Anesthesia Assessment: - Prior to the procedure, a History and Physical was performed, and patient medications and allergies were reviewed. The patient is competent. The risks and benefits of the procedure and the sedation options and risks were discussed with the patient. All questions were answered and informed consent was obtained. Patient identification and proposed procedure were verified by the physician, the nurse and the anesthesiologist in the procedure room. Mental Status Examination: alert and oriented. Airway Examination: normal oropharyngeal airway and neck mobility. Respiratory Examination: clear to auscultation. CV Examination: normal. Prophylactic Antibiotics: The patient does not require prophylactic antibiotics. Prior Anticoagulants: The patient has taken no previous anticoagulant or antiplatelet agents. ASA Grade Assessment: II - A patient with mild systemic disease. After reviewing the risks and benefits, the patient was deemed in satisfactory condition to undergo the procedure. The anesthesia plan was to use monitored anesthesia care (MAC). Immediately prior to administration of medications, the patient was re-assessed for adequacy to receive sedatives. The heart rate, respiratory rate, oxygen saturations, blood pressure, adequacy of pulmonary ventilation, and response to care were monitored throughout the procedure. The physical status of the patient was re-assessed after the procedure. The Colonoscope was introduced through the anus and advanced to the terminal ileum, with identification of the appendiceal orifice and IC valve. The colonoscopy was performed without difficulty. The patient tolerated the procedure well. The quality of the bowel preparation was good. The terminal ileum, ileocecal valve, appendiceal orifice, and rectum were photographed. Scope insertion time was 2 minutes. Scope withdrawal time was 9 minutes. The total duration of the procedure was 12 minutes. Findings: The perianal and digital rectal examinations were normal. The terminal ileum appeared normal. Three sessile polyps were found in the ascending colon. The polyps were 8 to 12 mm in size. These polyps were removed with a cold snare. Resection and retrieval were complete. Verification of patient identification for the specimen was done by the physician and nurse using the patient's name, date and medical record number. Estimated blood loss was minimal. Multiple small and large-mouthed diverticula were found from sigmoid to descending colon. There was no evidence of diverticular bleeding. Non-bleeding external and internal hemorrhoids were found during retroflexion. The hemorrhoids were medium-sized. Impression: - The examined portion of the ileum was normal. - Three 8 to 12 mm polyps in the ascending colon, removed with a cold snare. Resected and retrieved. - Moderate diverticulosis from sigmoid to descending colon. There was no evidence of diverticular bleeding. - Non-bleeding external and internal hemorrhoids. Recommendation: - Patient has a contact number available for emergencies. The signs and symptoms of potential delayed complications were discussed with the patient. Return to normal activities tomorrow. Written discharge instructions were provided to the patient. - High fiber diet. - Continue present medications. - Use fiber, for example Citrucel, Fibercon, Konsyl or Metamucil. - Await pathology results. - Repeat colonoscopy in 3 - 5 years for surveillance based on pathology results. - Telephone GI clinic for pathology results in 2 weeks. - Return to GI clinic if persistent symptoms or new symptoms. - Return to primary care physician. Procedure Code(s): --- Professional --- 74677, Colonoscopy, flexible; with removal of tumor(s), polyp(s), or other lesion(s) by snare technique Diagnosis Code(s): --- Professional --- Z12.11, Encounter for screening for malignant neoplasm of colon K64.8, Other hemorrhoids K63.5, Polyp of colon K57.30, Diverticulosis of large intestine without perforation or abscess without bleeding CPT copyright 2019 [employer] [place] [employer]. All rights reserved. The codes documented in this report are preliminary and upon hospital coder review may be revised to meet current compliance requirements. Chencho Vásquez MD Chencho Vásquez MD 09/07/2021 1:07:37 PM Electronically signed by Chencho Vásquez MD Number of Addenda: 0 Note Initiated On: 09/07/2021 12:13 PM Estimated Blood Loss: Estimated blood loss: none.
[2021-09-07 13:25] VITALS: BP 157/88
== END 2021-09-07 13:27 | disposition home or self-care (01) ==
LOC: M OPP 10:56
PROVIDERS: ATTEND Internal Medicine Gastroenterology
DX: Z12.11 Encounter for screening for malignant neoplasm of colon (principal); Z80.0 Family history of malignant neoplasm of digestive organs; K63.5 Polyp of colon; K57.30 Diverticulosis of large intestine without perforation or abscess without bleeding; K64.8 Other hemorrhoids; K29.70 Gastritis, unspecified, without bleeding; D50.9 Iron deficiency anemia, unspecified; Z79.899 Other long term (current) drug therapy; Z80.3 Family history of malignant neoplasm of breast
CPT/HCPCS: 43239; 45385; 88305; C9733; J3010

== ENCOUNTER → 2021-11-21 | Outpatient (REF) | payer OTHER ==
[~2021-11-21] MED LIST changes: -LIDOCAINE 2% 100MG/5ML SDV (FOR ANES.) As Ordered ONE; -NS 1,000 ML IV ONE; -fentaNYL 100 MCG/2 ML INJECTION (J3010) As Ordered ONE; -propofoL 500 MG/50 ML VIAL As Ordered ONE
[2021-11-21 13:05] LABS: CHOLESTEROL RISK RATIO 2.87 (<5)
== END ==
LOC: M SFHCCLAY 07:40
PROVIDERS: ATTEND Physician Assistant
DX: R53.82 Chronic fatigue, unspecified (principal); E78.00 Pure hypercholesterolemia, unspecified

== ENCOUNTER 2022-04-09 10:42 | Emergency (ER) | payer OTHER ==
[~2022-04-09] VITALS: Ht 177.8 cm; Wt 89.9 kg
[2022-04-09 12:40] LABS: BASO % 0.3 % (0.0-1.0); EOS # 0.1 10^3/uL (0.0-0.5); EOS % 1.1 % (0.0-3.0); HEMATOCRIT 38.9 % (36.0-47.0); HEMOGLOBIN 12.8 g/dl (12.0-15.5); LYMPH # 1.7 10^3/uL (1.5-5.0); LYMPH % 18.3 % (24.0-44.0); MEAN CORPUSCULAR HEMOGLOBIN 31.1 pg (27.0-33.0); MEAN CORPUSCULAR HGB CONC 32.9 g/dl (32.0-36.5); MEAN CORPUSCULAR VOLUME 94.4 fl (80.0-96.0); MONO # 0.6 10^3/uL (0.0-0.8); MONO % 6.3 % (2.0-8.0); NEUTROPHILS % 73.5 % (36.0-66.0); PLATELET COUNT, AUTOMATED 217 10^3/uL (150-450); RED BLOOD COUNT 4.12 10^6/uL (4.00-5.40); WHITE BLOOD COUNT 9.5 10^3/uL (4.0-10.0)
[2022-04-09 13:12] LABS: BLOOD UREA NITROGEN 11 MG/DL (7-18); CALCIUM LEVEL 9.2 MG/DL (8.5-10.1); CARBON DIOXIDE LEVEL 27 MEQ/L (21-32); CHLORIDE LEVEL 108 MEQ/L (98-107); CREATININE FOR GFR 0.73 MG/DL (0.55-1.30); GLOMERULAR FILTRATION RATE > 60.0 (>58); GLUCOSE, FASTING 92 MG/DL (70-100); LIPASE 142 U/L (73-393); POTASSIUM SERUM 4.9 MEQ/L (3.5-5.1); SODIUM LEVEL 141 MEQ/L (136-145)
[2022-04-09] MEDS ORDERED: ISOVUE-370 76% 100ML VIAL As Ordered ONE (13:35)
[2022-04-09 17:21] VITALS: BP 144/84
== END 2022-04-09 17:25 | disposition home or self-care (01) ==
LOC: M ED 10:42
DX: R10.31 Right lower quadrant pain (principal); R93.89 Abnormal findings on diagnostic imaging of other specified body structures; K90.0 Celiac disease
CPT/HCPCS: 36415; 74177; 76830; 76856; 80048; 81001; 83690; 84702; 85025; 93976; 99284; Q9967

== ENCOUNTER → 2022-08-09 | Outpatient (REF) | payer OTHER ==
[2022-08-09 17:54] LABS: BASO % 0.5 % (0.0-1.0); EOS # 0.2 10^3/uL (0.0-0.5); EOS % 3.3 % (0.0-3.0); HEMATOCRIT 38.9 % (36.0-47.0); HEMOGLOBIN 12.7 g/dl (12.0-15.5); LYMPH % 34.4 % (24.0-44.0); MEAN CORPUSCULAR HEMOGLOBIN 31.1 pg (27.0-33.0); MEAN CORPUSCULAR HGB CONC 32.6 g/dl (32.0-36.5); MEAN CORPUSCULAR VOLUME 95.1 fl (80.0-96.0); MONO # 0.7 10^3/uL (0.0-0.8); MONO % 11.2 % (2.0-8.0); NEUTROPHILS # 2.9 10^3/uL (1.5-8.5); NEUTROPHILS % 50.3 % (36.0-66.0); PLATELET COUNT, AUTOMATED 215 10^3/uL (150-450); RED BLOOD COUNT 4.09 10^6/uL (4.00-5.40); WHITE BLOOD COUNT 5.8 10^3/uL (4.0-10.0)
[2022-08-09 18:32] LABS: ALBUMIN 3.6 GM/DL (3.2-5.2); ALT/SGPT 23 U/L (12-78); BILIRUBIN,TOTAL 0.3 MG/DL (0.2-1.0); BLOOD UREA NITROGEN 16 MG/DL (7-18); CALCIUM LEVEL 8.8 MG/DL (8.5-10.1); CARBON DIOXIDE LEVEL 28 MEQ/L (21-32); CHLORIDE LEVEL 106 MEQ/L (98-107); CREATININE FOR GFR 0.79 MG/DL (0.55-1.30); GLOMERULAR FILTRATION RATE > 60.0 (>58); GLUCOSE, FASTING 87 MG/DL (70-100); POTASSIUM SERUM 4.7 MEQ/L (3.5-5.1); SODIUM LEVEL 137 MEQ/L (136-145); TOTAL PROTEIN 6.8 GM/DL (6.4-8.2)
== END ==
LOC: M SFHCCLAY 10:16
PROVIDERS: ATTEND Physician Assistant
DX: R10.31 Right lower quadrant pain (principal)

== ENCOUNTER → 2022-08-29 | Outpatient (CLI) | payer OTHER ==
[~2022-08-29] MED LIST changes: +PROHANCE 279.3MG/ML 15ML VIAL ONE; +PROHANCE 279.3MG/ML 5ML VIAL ONE
== END ==
LOC: M PLAIMG 14:46
PROVIDERS: ATTEND Physician Assistant
DX: D18.09 Hemangioma of other sites (principal)

== ENCOUNTER → 2023-09-01 | Outpatient (REF) | payer OTHER ==
[~2023-09-01] MED LIST changes: -PROHANCE 279.3MG/ML 15ML VIAL ONE; -PROHANCE 279.3MG/ML 5ML VIAL ONE
== END ==
LOC: M SFHCDERM 14:23
PROVIDERS: ATTEND Physician Assistant
DX: D18.01 Hemangioma of skin and subcutaneous tissue (principal)

== ENCOUNTER → 2023-10-16 | Outpatient (CLI) | payer OTHER | LOC: M WHC 15:31 | PROVIDERS: ATTEND Nurse Practitioner Family | DX: Z12.31 Encounter for screening mammogram for malignant neoplasm of breast (principal) ==

== ENCOUNTER → 2024-01-20 | Outpatient (CLI) | payer OTHER ==
[2024-01-20 11:44] LABS: BASO # 0.1 10^3/uL (0.0-0.2); BASO % 0.7 % (0.0-1.0); EOS # 0.2 10^3/uL (0.0-0.5); EOS % 3.1 % (0.0-3.0); HEMATOCRIT 40.6 % (36.0-47.0); HEMOGLOBIN 13.2 g/dl (12.0-15.5); LYMPH # 2.4 10^3/uL (1.5-5.0); LYMPH % 33.2 % (24.0-44.0); MEAN CORPUSCULAR HEMOGLOBIN 30.6 pg (27.0-33.0); MEAN CORPUSCULAR HGB CONC 32.5 g/dl (32.0-36.5); MONO # 0.7 10^3/uL (0.0-0.8); MONO % 9.6 % (2.0-8.0); NEUTROPHILS # 3.8 10^3/uL (1.5-8.5); NEUTROPHILS % 53.1 % (36.0-66.0); PLATELET COUNT, AUTOMATED 239 10^3/uL (150-450); RED BLOOD COUNT 4.32 10^6/uL (4.00-5.40); WHITE BLOOD COUNT 7.1 10^3/uL (4.0-10.0)
[2024-01-20 12:16] LABS: ALBUMIN 3.6 G/DL (3.2-5.2); ALKALINE PHOSPHATASE 60 U/L (46-116); ALT/SGPT 28 U/L (7.0-40); AST/SGOT 26 U/L (<34); BILIRUBIN,TOTAL 0.5 MG/DL (0.3-1.2); BLOOD UREA NITROGEN 16 MG/DL (9-23); CALCIUM LEVEL 8.9 MG/DL (8.5-10.1); CARBON DIOXIDE LEVEL 32 MMOL/L (20-31); CHLORIDE LEVEL 102 MMOL/L (98-107); CREATININE FOR GFR 0.83 MG/DL (0.55-1.30); GLOMERULAR FILTRATION RATE > 60.0 (>58); GLUCOSE, FASTING 90 MG/DL (60-100); SODIUM LEVEL 138 MMOL/L (136-145); TOTAL PROTEIN 6.5 G/DL (5.7-8.2)
== END ==
LOC: M WUC 09:12
PROVIDERS: ATTEND Physician Assistant
DX: L13.0 Dermatitis herpetiformis (principal)

== ENCOUNTER → 2025-01-06 | Outpatient (REF) | payer OTHER ==
[2025-01-06 19:08] LABS: ALBUMIN 3.8 G/DL (3.2-5.2); ALKALINE PHOSPHATASE 65 U/L (35-104); ALT/SGPT 23 U/L (7.0-40); AST/SGOT 16 U/L (<34); BASO % 0.5 % (0.0-1.0); BILIRUBIN,TOTAL 0.3 MG/DL (0.3-1.2); BLOOD UREA NITROGEN 16 MG/DL (9-23); CARBON DIOXIDE LEVEL 27 MMOL/L (20-31); CHLORIDE LEVEL 106 MMOL/L (98-107); CHOLESTEROL LEVEL 203 MG/DL (<200); CHOLESTEROL RISK RATIO 3.34 (<5); CREATININE FOR GFR 0.76 MG/DL (0.55-1.30); EOS # 0.2 10^3/uL (0.0-0.5); EOS % 2.9 % (0.0-3.0); GLOMERULAR FILTRATION RATE > 60.0 (>58); GLUCOSE, FASTING 88 MG/DL (60-100); HDL CHOLESTEROL 60.7 MG/DL (>40); HEMATOCRIT 39.7 % (36.0-47.0); HEMOGLOBIN 13.2 g/dl (12.0-15.5); LDL CHOLESTEROL 110.7 MG/DL (<100); LYMPH # 1.9 10^3/uL (1.5-5.0); LYMPH % 31.1 % (24.0-44.0); MEAN CORPUSCULAR HEMOGLOBIN 30.8 pg (27.0-33.0); MEAN CORPUSCULAR HGB CONC 33.2 g/dl (32.0-36.5); MEAN CORPUSCULAR VOLUME 92.5 fl (80.0-96.0); MONO # 0.6 10^3/uL (0.0-0.8); NEUTROPHILS # 3.5 10^3/uL (1.5-8.5); NEUTROPHILS % 56.2 % (36.0-66.0); NON-HDL-C 142.3 MG/DL; PLATELET COUNT, AUTOMATED 239 10^3/uL (150-450); POTASSIUM SERUM 3.9 MMOL/L (3.5-5.1); RED BLOOD COUNT 4.29 10^6/uL (4.00-5.40); SODIUM LEVEL 142 MMOL/L (136-145); TOTAL PROTEIN 7.1 G/DL (5.7-8.2); TRIGLYCERIDES LEVEL 158 MG/DL (<150); WHITE BLOOD COUNT 6.1 10^3/uL (4.0-10.0)
[2025-01-06 19:10] LABS: C REACTIVE PROTEIN QUANTITATIV < 0.50 MG/DL (<1.0); RHEUMATOID FACTOR QUANT < 3.5 IU/ML (<14)
[2025-01-06 19:12] LABS: FREE T4 1.21 NG/DL (0.89-1.76); THYROID STIMULATING HORMONE 1.765 uIU/ML (0.55-4.78)
[2025-01-06 19:28] LABS: ERYTHROCYTE SEDIMENTATION RATE 18 mm/hr (0-20)
[2025-01-06 20:11] LABS: HEMOGLOBIN A1c 5.2 % (4.0-6.0)
== END ==
LOC: M SFHCCLAY 10:56
PROVIDERS: ATTEND Nurse Practitioner Family
DX: I10 Essential (primary) hypertension (principal); E78.00 Pure hypercholesterolemia, unspecified; L13.0 Dermatitis herpetiformis

== ENCOUNTER → 2025-02-07 | Outpatient (CLI) | payer OTHER | LOC: M RAD 07:24 | PROVIDERS: ATTEND Nurse Practitioner Family | DX: R76.8 Other specified abnormal immunological findings in serum (principal) ==

== ENCOUNTER → 2025-07-20 | Outpatient (REF) | payer OTHER ==
[2025-07-20 18:36] LABS: ALT/SGPT 28.0 U/L (7.0-40); AST/SGOT 24.0 U/L (<34); CALCIUM LEVEL 9.8 MG/DL (8.5-10.1); CARBON DIOXIDE LEVEL 27.0 MMOL/L (20-31); CHLORIDE LEVEL 104.0 MMOL/L (98-107); CREATININE FOR GFR 0.83 MG/DL (0.55-1.30); GLOMERULAR FILTRATION RATE 86.4 (>58); POTASSIUM SERUM 4.6 MMOL/L (3.5-5.1); SODIUM LEVEL 142.0 MMOL/L (136-145)
== END ==
LOC: M LABDRAWC 17:43
PROVIDERS: ATTEND Registered Nurse Case Management
DX: Z79.899 Other long term (current) drug therapy (principal)